=== PATIENT | female | born 1975 | race African-American/Black ===

== ENCOUNTER 2024-06-30 11:33 | Emergency (ER) | payer OTHER, SELFPAY ==
[2024-06-30 11:55] VITALS: BP 151/99; PULSE 60; RESP 18; TEMP 36.2; O2SAT 98
--- NOTE | 2024-06-30 12:20 | ED.EAR ---
HPI - Ear Problem General Chief complaint: Ear Stated complaint: R and L ear pain dizziness Time Seen by Provider: 06/30/24 12:05 Source: patient and RN notes reviewed Mode of arrival: ambulatory Limitations: no limitations History of Present Illness HPI Narrative: 48-year-old female presents [facility] complaining of right-sided ear pain for 4-5 days. Patient reports 2 weeks ago she respiratory symptoms have resolved and she has now developed right-sided ear pain developed left-sided ear pain as well starting today. Patient also reports having dizziness over the last 4 days. Patient reports feels like she is off balance and has a hard time focusing on object with her eyes. Patient reports dizziness is worse with position changes especially while lying flat. Patient denies any headaches, slurred speech, chest pain, focal weakness, numbness or tingling, or any other symptoms. Patient denies any hearing loss. Patient does have a history of hypertension and diabetes. Patient has a history of gastric bypass surgery. Patient denies any syncope or lightheadedness. Related Data Home Medications ?Medication ?Instructions ?Recorded ?Confirmed ?Last Taken ?Type amlodipine 10 mg tablet mg 06/30/24 Unknown History carvedilol 25 mg tablet mg 06/30/24 Unknown History cyanocobalamin (vitamin B-12) mcg 06/30/24 Unknown History 1,000 mcg sublingual tablet epinephrine 0.3 mg/0.3 mL 06/30/24 Unknown History injection, auto-injector escitalopram oxalate 10 mg tablet mg 06/30/24 Unknown History escitalopram oxalate 20 mg tablet mg 06/30/24 Unknown History hydralazine 10 mg tablet mg 06/30/24 Unknown History multivitamin tablet 06/30/24 Unknown History potassium chloride 10 mEq meq PO 06/30/24 Unknown History tablet,extended release Allergies Allergy/AdvReac Type Severity Reaction Status Date / Time lisinopril Allergy Severe Anaphylaxis Verified 06/30/24 11:56 metronidazole Allergy Unknown HIVE AND Verified 06/30/24 11:56 SWELLING Contrast Media Allergy Unknown Unknown Uncoded 06/30/24 11:56 Review of Systems Review of Systems: CONSTITUTIONAL: Denies fever, chills, body aches, or sweats. EYES: Denies visual changes, redness, or discharge. ENT: Negative for rhinorrhea, congestion, sore throat. Positive for otalgia. CARDIOVASCULAR: Denies chest pain, palpitations, syncope, lightheadedness, or edema. Positive for dizziness. RESPIRATORY: Negative for coughing and dyspnea. GASTROINTESTINAL: Denies abdominal pain, nausea, vomiting, or diarrhea. GENITOURINARY: Denies dysuria or hematuria. SKIN: Denies rash or itching. MUSCULOSKELETAL: Denies back pain, joint pain, or myalgia. NEUROLOGIC: Denies headache, slurred speech, facial droop, numbness, or weakness. PSYCHIATRIC: Denies anxiety or depression. All other systems reviewed are negative, except as documented in HPI. PMFSH Comments At the time of my signature, I reviewed and agree with the nursing past medical, surgical, social, and family history. There is no relevant family history pertinent to the patient complaint. Exam Narrative: GENERAL: This is a well-nourished, well-developed adult, in no apparent distress. They are non ill-appearing, nontoxic appearing. HEAD: normocephalic, atraumatic. EYES: Sclera clear/white. Vision is grossly intact. Conjunctiva normal bilaterally. Extraocular movements intact. Pupils PERRLA. No nystagmus. EARS: External ears normal, auditory canals are erythematous and tender bilaterally, left TM without erythema or perforation. Right TM is erythematous non bulging. Right TM intact. Hearing grossly intact. NOSE: External nose normal with no obvious nasal discharge, nasal turbinates erythematous, no rhinorrhea. THROAT: Mucous membranes moist, posterior pharynx erythematous without exudate. Uvula is midline. Postnasal drip present. NECK: Neck supple, non-tender without lymphadenopathy, masses or thyromegaly. CARDIOVASCULAR: Regular rate and rhythm without murmurs, gallops, or rubs. RESPIRATORY: Clear to auscultation. Breath sounds equal bilaterally. No wheezes, rales, or rhonchi. SKIN: warm, Dry, intact with no suspicious lesions or rash, good texture and turgor. NEURO: awake, alert, and oriented to person, place and time. There were no obvious focal neurologic abnormalities. No facial droop. Speech is clear and comprehensive. Development Coordinator strength equal. No arm drift. EXTREMITIES: No joint tenderness, effusion, or edema noted. BACK: Nontender without deformity. Course Course Emergency Course: Portions of this record may have been created with voice recognition software Level of Care: Express Care Visit Vital Signs Vital signs: Vital Signs Temperature 97.1 F L 06/30/24 11:55 Pulse Rate 60 06/30/24 11:55 Respiratory Rate 18 06/30/24 11:55 Blood Pressure 151/99 H 06/30/24 11:55 Pulse Oximetry 98 06/30/24 11:55 Oxygen Delivery Room Air 06/30/24 11:55 Temperature 97.1 F L 06/30/24 11:55 Pulse Rate 60 06/30/24 11:55 Respiratory Rate 18 06/30/24 11:55 Blood Pressure 151/99 H 06/30/24 11:55 Pulse Oximetry 98 06/30/24 11:55 Oxygen Delivery Room Air 06/30/24 11:55 Medical Decision Making MDM Narrative Medical decision making narrative: Patient's dizziness likely from an otitis media along with bilateral otitis externa. Will treat empirically with amoxicillin and ofloxacin ear drops. Patient cannot take meclizine due to the potassium tablets she takes. Will prescribe of ondansetron as needed for nausea and vomiting. Discussed physical exam findings. Advised supportive measures and signs/symptoms to go to the ER. Pt is appropriate for outpt treatment and f/u. Differential Diagnosis Differential Diagnosis: Otitis media, otitis externa, vestibular disease, vertigo Vital Signs Vital Signs: Vital Signs Temperature 97.1 F L 06/30/24 11:55 Pulse Rate 60 06/30/24 11:55 Respiratory Rate 18 06/30/24 11:55 Blood Pressure 151/99 H 06/30/24 11:55 Pulse Oximetry 98 06/30/24 11:55 Oxygen Delivery Room Air 06/30/24 11:55 Temperature 97.1 F L 06/30/24 11:55 Pulse Rate 60 06/30/24 11:55 Respiratory Rate 18 06/30/24 11:55 Blood Pressure 151/99 H 06/30/24 11:55 Pulse Oximetry 98 06/30/24 11:55 Oxygen Delivery Room Air 06/30/24 11:55 Discharge Plan Discharge Clinical Impression: Otitis externa Qualifiers: Otitis externa type: unspecified type Chronicity: acute Laterality: bilateral Qualified Code(s): H60.503 - Unspecified acute noninfective otitis externa, bilateral Otitis media Qualifiers: Otitis media type: unspecified Chronicity: acute Qualified Code(s): H66.90 - Otitis media, unspecified, unspecified ear Patient Disposition: Home Condition: Stable Instructions: Antibiotic Form, Ear Infection (ED) Additional Instructions: Take antibiotic drops as directed. Take oral antibiotics as directed. Tylenol and ibuprofen every 8 hours as needed to reduce fever, pain Avoid water or anything into the ear until the infection resolves Do not use Q-tips in your ears You may take Zofran as directed for any nausea and vomiting. Follow up with your personal physician for further evaluation and treatment within 3-5days. If you develop worsening dizziness, vision changes, one-sided weakness, slurred speech, severe headaches, or any other concerns please go to the ER immediately Patient Language: Nepali Prescriptions: New ondansetron 4 mg tablet,disintegrating 4 mg PO Q8H PRN (Reason: nausea and vomiting) Qty: 12 0RF amoxicillin 875 mg tablet 875 mg PO Q12H 7 Days Qty: 14 0RF ofloxacin 0.3 % drops 10 drp EACH EAR DAILY 7 Days Qty: 10 0RF No Action multivitamin Tablet hydralazine 10 mg tablet carvedilol 25 mg tablet potassium chloride 10 mEq tablet extended release PO amlodipine 10 mg tablet cyanocobalamin (vitamin B-12) 1,000 mcg tablet, sublingual epinephrine 0.3 mg/0.3 mL auto-injector escitalopram oxalate 10 mg tablet escitalopram oxalate 20 mg tablet Follow-up/Referrals: UNKNOWN,DOCTOR [Primary Care Provider] - Time of Disposition: 12:19
== END 2024-06-30 12:28 | disposition home or self-care (01) ==
DX: H60.503 Unspecified acute noninfective otitis externa, bilateral (principal); H66.91 Otitis media, unspecified, right ear; I10 Essential (primary) hypertension; E11.9 Type 2 diabetes mellitus without complications; Z98.84 Bariatric surgery status
CPT/HCPCS: 99213; G0463